=== PATIENT | female | born 1930 | race Caucasian/White ===

== ENCOUNTER → 2017-08-01 | Outpatient (CLI) | payer MEDICARE, MEDICAID ==
[~2017-08-01] MED LIST: LISINOPRIL-HCT1 EACH PO; LISINOPRIL10 MG PO; ZOFRAN 4 MG ORAL4 MG PO
== END ==
LOC: M.MRI 12:46
DX: M76.891 Other specified enthesopathies of right lower limb, excluding foot (principal)

== ENCOUNTER → 2018-06-19 | Outpatient (CLI) | payer MEDICARE, MEDICAID | LOC: M.LAB 07:56 | DX: E87.6 Hypokalemia (principal) ==